=== PATIENT | female | born 1945 | race Caucasian/White ===

== ENCOUNTER 2017-02-06 14:48 | Inpatient (IN) | payer MEDICARE, BC ==
[~2017-02-06 14:48] MED LIST: ABILIFY5 MG PO; ACIPHEX20 MG; ADVAIR 2501 DISK W/D IH; ALBUTEROL SULFATE IH; ALDACTONE100 M1 PO; BENZONATATE200 M1 PO; CIPRO500 MG PO; COUMADIN2.5 MG; COUMADIN2.5 MG PO; COUMADIN3 M1 PO; COUMADIN5 MG; COUMADIN5 MG PO; CPAP; CRANBERRY PO; CRANBERRY TABLET PO; CYMBALTA30 MG PO; CYMBALTA60 MG; CYMBALTA60 MG PO; DARVOCET-N 1001 TAB; DEXILANT60 M1 PO; DILTIAZEM 24HR120 MG PO; DUONEB 2.5-0.5 M3 ML IH; EFFEXOR XR150 MG PO; FLEXERIL10 MG PO; FLONASE16 G1; FLONASE16 GM NS; FLOVENT HFA12 G IH; GLUCOPHAGE500 MG; H PO; HYDROCODON-ACE1 EAC7 PO; INHALERS; IPRATROPIU0.2 MG/1 M NEB; K-DUR10 MEQ PO; K-DUR20 ME2 PO; LAMICTAL200 M1 PO; LAMICTAL200 MG PO; LANOXIN125 MC3 PO; LASIX40 MG; LASIX40 MG PO; LIPITOR20 MG; LOVASTATIN20 M2 PO; LOVASTATIN40 M1 PO; LOVASTATIN40 MG PO; LOVENOX SQ; LOVENOX60 MG/0.6 SQ; MAGNESIUM OXID400 M1 PO; METFORMIN HCL500; METOPROLOL TART25 MG PO; MOBIC15 MG; MULTIVITAMIN1 TAB PO; NEXIUM40 M1 PO; NEXIUM40 MG; OMEPRAZOLE20 MG PO; PERCOCET 7.5/1 UDTAB; PHENTERMINE H37.5 MG; POTASSIUM CHLO10 ME2 PO; PREDNISONE10 M1 PO; REQUIP1 M1 PO; RESTORIL30 MG PO; SERTRALINE HCL100 M5 PO; SINEMET CR 21 TAB.SA; SKELAXIN800 MG PO; SMZ-TMP DS 800-1 TAB; SYMBICORT 160-4.6 GM IH; TEMAZEPAM30 MG PO; TYLENOL325 MG PO; VITAMIN B1250 MCG PO; VITAMIN B12500 MCG PO; VITAMIN D250000 UNI1 PO; XARELTO; XARELTO20 MG PO; ZOLOFT100 MG PO; ZYPREXA10 MG; [UNRECOGNIZED DRUG - REMARK] PO
[2017-02-06] MEDS ORDERED: MULTIVITAMINS1 EAC7 PO (16:06)
[2017-02-06] MEDS ORDERED: VITAMIN B-12100 MC1 PO (16:06)
[2017-02-06] MEDS ORDERED: CRANBERRY200 M1 PO (16:07)
[2017-02-06] MEDS ORDERED: BENADRYL25 M3 PO (16:07)
[2017-02-06] MEDS ORDERED: BROVANA15 MCG/22 INH (16:08)
[2017-02-06] MEDS ORDERED: ALBUTEROL2.5 MG/3 M INH (16:08)
[2017-02-06] MEDS ORDERED: MUCINEX1200 MG PO (16:08)
[2017-02-06] MEDS ORDERED: ADVAIR 25028 BLISTE1 (16:09)
[2017-02-06] MEDS ORDERED: NITROSTAT0.4 M1 SL (16:10)
[2017-02-06 16:53] LABS: EOSINOPHIL ABSOLUTE COUNT 0.1 tho/cmm (0.0-0.7); HCT-HEMATOCRIT 41.5 % (34.0-49.0); HGB-HEMOGLOBIN 14.2 gm/dl (12.0-15.5); IMMATURE GRANULOCYTES ABSOLUTE 0.02 tho/cmm (0-0.03); IMMATURE GRANULOCYTES PERCENT 0.3 % (0-0.3); LYMPH % 21.1 % (20-45); LYMPH ABSOLUTE COUNT 1.5 tho/cmm (0.8-4.5); MCH (MEAN CORPUSCULAR HGB) 33.1 pg (28.0-32.0); MCHC MEAN CORPUSCULAR HGB CONC 34.2 % (32.0-36.0); MCV (MEAN CELL VOLUME) 96.7 fl (82.0-96.0); MEAN PLATELET VOLUME 9.6 cmc (9.4-12.4); MONO % 9.5 % (0-12); MONOCYTE ABSOLUTE COUNT 0.7 tho/cmm (0.0-1.2); NEUTROPHIL ABSOLUTE COUNT 4.7 tho/cmm (1.6-8.0); NEUTROPHIL-AUTOMATED 4.7 tho/cmm (1.6-8.0); NEUTROPHILS % 68.1 % (40-80); PLATELET COUNT 186 tho/cmm (150-450); RED BLOOD COUNT 4.29 mil/cmm (4.00-5.20); RED CELL DISTRIBUTION WIDTH 13.7 % (12.4-16.4)
[2017-02-06 16:58] LABS: INR 1.6 INR (0.9-1.1); PROTHROMBIN TIME 18.5 SECONDS (9.0-13.6)
[2017-02-06 17:09] LABS: ALB/GLOB RATIO 1.1 (0.8-2.0); ALBUMIN 3.6 g/dl (3.5-5.0); ALKALINE PHOSPHATASE 75 U/L (33-138); ALT/SGPT 36 U/L (12-78); AMYLASE 24 U/L (20-90); ANION GAP 15 mmol/L (0-20); AST/SGOT 27 U/L (10-40); BILIRUBIN,DIRECT 0.2 mg/dl (0.0-0.3); BILIRUBIN,INDIRECT 0.4 mg/dL (0.0-1.0); BILIRUBIN,TOTAL 0.6 mg/dl (0-1.5); BLOOD UREA NITROGEN 18 mg/dl (6-24); CALCIUM 9.2 mg/dl (8.5-10.5); CARBON DIOXIDE-VENOUS 27 mmol/L (22-32); CHLORIDE 106 mmol/l (96-110); CREATININE 1.11 mg/dl (0.50-1.10); GLUCOSE 98 mg/dL (70-110); LIPASE 136 U/L (73-393); PHOSPHOROUS 2.8 mg/dl (2.5-4.9); POTASSIUM 4.4 mmol/L (3.7-5.1); SODIUM 144 mmol/L (135-145); eGFR VALUE FOR BLACK 58 mL/Min
--- NOTE | 2017-02-06 19:54 | NUR ---
VIRTUAL CARE NOTE: PT. IN BED WITH DAUGHTER AT SIDE, C/O OF LEG PAIN AND CRAMPS. WILL NOTIFY FLOOR STAFF OF NEED FOR PAIN MEDS. ALSO INSTRUCTED PT. THAT IF SHE IS HAVING PAIN TO PLEASE CALL US VIA THE CALL-LIGHT. INQUIRING ABOUT DIET STATUS, NO ORDERS VIEWED IN COMMAND CENTER FOR PT. TO BE ABLE TO EAT. RN ON UNIT PAGED FOR NEEDS, WHILE INSTRUCTED PT. TO CALL FOR FURTHER NEEDS. STATES VERBAL UNDERSTANDING.
[2017-02-07 03:48] LABS: URINE APPEARANCE CLEAR; URINE BILIRUBIN NEGATIVE (NEG); URINE BLOOD SMALL (NEG); URINE COLOR YELLOW; URINE GLUCOSE (UA) NEGATIVE (NEG); URINE KETONE MODERATE (NEG); URINE LEUKOCYTE ESTERASE NEGATIVE (NEG); URINE NITRITE NEGATIVE (NEG); URINE PROTEIN NEGATIVE (NEG); URINE SPECIFIC GRAVITY 1.025 (1.003-1.030)
[2017-02-07 04:24] LABS: URINE BACTERIA 3+; URINE EPITHELIAL CELLS 0-3 /[HPF] (0-10); URINE RBC 0-2 /[HPF] (0-5); URINE WBC RARE /[HPF] (0-5)
[2017-02-07 05:07] LABS: EOS % 1.6 % (0-7); EOSINOPHIL ABSOLUTE COUNT 0.1 tho/cmm (0.0-0.7); HCT-HEMATOCRIT 37.8 % (34.0-49.0); HGB-HEMOGLOBIN 12.9 gm/dl (12.0-15.5); IMMATURE GRANULOCYTES ABSOLUTE 0.02 tho/cmm (0-0.03); IMMATURE GRANULOCYTES PERCENT 0.3 % (0-0.3); INR 1.5 INR (0.9-1.1); LYMPH % 27.5 % (20-45); LYMPH ABSOLUTE COUNT 1.7 tho/cmm (0.8-4.5); MCH (MEAN CORPUSCULAR HGB) 32.9 pg (28.0-32.0); MCHC MEAN CORPUSCULAR HGB CONC 34.1 % (32.0-36.0); MCV (MEAN CELL VOLUME) 96.4 fl (82.0-96.0); MEAN PLATELET VOLUME 9.7 cmc (9.4-12.4); MONO % 9.6 % (0-12); MONOCYTE ABSOLUTE COUNT 0.6 tho/cmm (0.0-1.2); NEUTROPHIL ABSOLUTE COUNT 3.7 tho/cmm (1.6-8.0); NEUTROPHIL-AUTOMATED 3.7 tho/cmm (1.6-8.0); PLATELET COUNT 179 tho/cmm (150-450); PROTHROMBIN TIME 17.8 SECONDS (9.0-13.6); RED BLOOD COUNT 3.92 mil/cmm (4.00-5.20); RED CELL DISTRIBUTION WIDTH 13.8 % (12.4-16.4); WHITE BLOOD COUNT 6.1 tho/cmm (4.0-10.0)
[2017-02-07 05:14] LABS: ANION GAP 13 mmol/L (0-20); BLOOD UREA NITROGEN 17 mg/dl (6-24); CALCIUM 8.4 mg/dl (8.5-10.5); CARBON DIOXIDE-VENOUS 26 mmol/L (22-32); CHLORIDE 107 mmol/l (96-110); CREATININE 0.94 mg/dl (0.50-1.10); GLUCOSE 89 mg/dL (70-110); SODIUM 142 mmol/L (135-145); eGFR VALUE FOR BLACK 71 mL/Min
--- NOTE | 2017-02-07 15:47 | NUR ---
virtual care note: visited w/ pt and her daughter at this time--went over some of the tests that she had today and doctors progress notes. she has recovered well from her EGD this morning, has had the CAT scan of her abdomen, and has also had the esophagram. She is concerned about needing to have her lap band removed, to which I explained to her that the physicians will likely have planning discussions with her tomorrow morning with regard to what she needs to have done next. her daughter and pt ask appropriate questions. they have no further needs at this time. i will call patient back later this shift if i see the results of her CAT scan, and will help answer any additional questions they may have. electronic chart reviewed. will continue to monitor.
[2017-02-08 06:08] LABS: INR 1.3 INR (0.9-1.1); PROTHROMBIN TIME 15.3 SECONDS (9.0-13.6)
[2017-02-08] MEDS ORDERED: LEVAQUIN750 M1 PO (12:27)
[2017-02-08] MEDS ORDERED: DELTASONE20 MG PO (12:28)
--- NOTE | 2017-02-08 16:46 | NUR ---
VN DISCHARGE NOTE-EDUCATED PATIENT ON CHF DISMISSAL INSTRUCTIONS AND MEDICATIONS,FOLLOW UP APPT, DIETARY. I LET HER KNOW THAT THE DOCTOR HERE HAD SAID TO NO TO CONTINUE THE SPIRONOLACTON,ZOLOFT AND LOVASTATIN ON THE HOME MEDS YESTERDAY BUT ON THE DISCHARGE MAR HE CHECKED YES. I HAVE NOT HEARD BACK FROM HIM SO I ADVISED TO FOLLOWUP WITH HER PCP ON IT IF QUESTIONS. I DID GIVE HER A SHET ON THE ESOPHAGEAL MANOMETRY TEST ON 03/16 AND ON THE BARIATRIC DIETARY GUIDELINES FOR LAP BANDS,ETC. SHE WAS MUCH APPRECIATIVE AND SO WAS HER DAUGHTER. ALL QUESTIONS WERE ASKED AND ANSWERED AND THEY WERE ABLE TO DO TEACHBACK. OVER 45 MIN WAS SPENT ON EDUCATION FOR THIS PATIENT/FAMILY
== END 2017-02-08 16:34 | DRG 395 ==
LOC: 5WD 14:48
PROVIDERS: Family Medicine; ADMIT Internal Medicine
PROC: 0DC48ZZ Extirpation of Matter from Esophagogastric Junction, Via Natural or Artificial Opening Endoscopic (ICD-10-PCS; principal; 2017-02-07)
PROC: 0DB58ZX Excision of Esophagus, Via Natural or Artificial Opening Endoscopic, Diagnostic (ICD-10-PCS; 2017-02-07)
DX: T18.120A Food in esophagus causing compression of trachea, initial encounter (principal); R06.00 Dyspnea, unspecified; E66.01 Morbid (severe) obesity due to excess calories; I48.0 Paroxysmal atrial fibrillation; M19.90 Unspecified osteoarthritis, unspecified site; E78.5 Hyperlipidemia, unspecified; G47.33 Obstructive sleep apnea (adult) (pediatric); F32.9 Major depressive disorder, single episode, unspecified; J45.909 Unspecified asthma, uncomplicated; F41.9 Anxiety disorder, unspecified; I10 Essential (primary) hypertension; K21.9 Gastro-esophageal reflux disease without esophagitis; Z90.710 Acquired absence of both cervix and uterus; Z86.718 Personal history of other venous thrombosis and embolism; Z79.01 Long term (current) use of anticoagulants; Z87.891 Personal history of nicotine dependence
CPT/HCPCS: C9113; J1160; J1650; J2270; Q9967